=== PATIENT | female | born 1970 | race Caucasian/White ===

== ENCOUNTER 2021-08-27 10:04 | Emergency (ER) | payer SELFPAY ==
--- OUTSIDE RECORDS SUMMARY | 2021-08-27 10:07 | XMS REPORT | Continuity of Care Document ---
:1970 Author Organization [facility] t Address [address] [place] [address] Care Team Providers Name Role Phone Gumaro Gonzalez Attending Clinician Unavailable Problems This patient has no known problems. Allergies, Adverse Reactions, Alerts This patient has no known allergies or adverse reactions. Medications This patient has no known medications. Procedures This patient has no known procedures. Encounters Start End Encounter Admission Attending Care Care Encounter Source Date/Time Date/Time Type Type Clinicians Facility Department ID 2021-04-26 Outpatient Carlos [facility] [id number] Common 12:30:51 [facility] [id number] [facility] 2020-12-08 2020-12-08 Outpatient [facility] [id number] Common 00:00:00 00:00:00 [facility] 2020-11-29 2020-11-29 Outpatient [facility] [id number] Common 00:00:00 00:00:00 [facility] 2020-05-13 2020-05-13 Outpatient [facility] [id number] Common 00:00:00 00:00:00 [facility] Results Test Description Test Time Test Comments Results Result Comments Source PAP TEST, THINPREP, IMAGED 2021-07-04 16:59:51 Test Item Value Reference Range Interpretation Comme nts SOURCE: (test code = Cervical/Endocervical 8001) SLIDES: (test code = 1 801) LMP: (test code = 2017 8021) SPECIMEN ADEQUACY: (NOTE) Sati sfactory for (test code = 22274) evaluati on. Endocervical cells/transform ation zone component prese nt. INTERPRETATION: NILM/NO EPITH. ABNORMALITY;SEE (test code = 00804) BELOW -------- NEGATIVE FOR INTRAEPITHE LIAL LESION OR MALIGNANCY ( NILM) -- TRANSPORTATION SPECIALIST: Vicki Hutchinson (test code = 8101) LOCATION: (test code (NOTE) Specime ns processed and = 87877) [facility], [address] [place] [address], Phone: ( [phone], CLIA: [id number] CPT: (test code = (NOTE) 88688 U NLESS OTHERWISE 8140) INDICATED, COMP UTER AIDED AND CYTOTECHNOL OGIST SCREENING PERFO RMED. The Pap test is a screening test with an in herent, but low probabi lity of error. Your pa tient should be reminded to consult you immediately if she experiences any suspicious signs or symp toms, regardless of h er Pap test result. An alternate report format c ontaining images or conso lidated prior Pap histo ry is available as ap plicable. HPV HIGH RISK WITH GENOTYPE, [id number] 16:54:26 Test Item Value Reference Range Interpretation Comments HPV HIGH RISK INTERP NEGATIVE NEGATIVE (test code = 32558) HPV 16 (test code = NEGATIVE 84519) HPV 18 (test code = NEGATIVE 92155) HPV, HR, OTHER NEGATIVE Testing GENOTYPES (test code methodo logy is real-time = 30306) PCR utilizing h ydrolysis probes with the Voxoundas 480 0 system. The test indiv idually detects genot ypes 16 and 18, as well as the other 12 high r isk types (31,33,35,39,45 ,51,52,56 ,58,59,66,68). The expected re sult is negative. A negative result does not rule out the presence of HPV not included in the genotype set, a low level of infect ion or specimen haile pling error. U NLESS OTHERWISE INDIC ATED, ALL TESTING PERFORM ED ATCLINICAL PATH [facility], [facility]. [address] [place] [address] LABORATORY DIRE CTOR: GURPREET BELL M.D. CLIA NUMBER [id number] CAP ACCREDITATION N O. [id number]
[2021-08-27] MEDS ORDERED: HYDROCODONE/CHLORPHEN 5 ML/OSYR ONE (11:29)
[2021-08-27] MEDS ORDERED: IPRATROPIUM BROM 0.5MG/2.5ML ONE (11:29)
[2021-08-27] MEDS ORDERED: ALBUTEROL 2.5 MG/3 ML NEB SOL ONE (11:29)
--- NOTE | 2021-08-27 12:33 | RAD REPORT ---
EXAM DESCRIPTION: RAD - Chest Pa And Lat (2 Views) - 08/27/2021 12:25 pm CLINICAL HISTORY: COUGH Chest pain. COMPARISON: No comparisons FINDINGS: Prominent mild interstitial lung markings are seen bilaterally is suspicious for viral inf ection. The heart is upper limit of normal in size. No displaced fractures.
--- NOTE | 2021-08-27 13:27 | ER ---
Nurse's Notes [facility] Name: Dana Blackburn Age: 51 yrs Sex: Female : 1970 Arrival Date: 08/27/2021 Time: 10:06 Bed 9 Private MD: Diagnosis: Acute bronchitis, unspecified Presentation: 08/27 10:13 Chief complaint: Patient states: last week has had cough, stuffy nose, congestion, iw fatigue , body aches. Coronavirus screen: Client presents with at least one sign or symptom that may indicate coronavirus-19. Ebola Screen: Patient negative for fever greater than or equal to 101.5 degrees Fahrenheit, and additional compatible Ebola Virus Disease symptoms Patient denies exposure to infectious person. Patient denies travel to an Ebola-affected area in the 21 days before illness onset. No symptoms or risks identified at this time. Initial Sepsis Screen: Does the patient meet any 2 criteria? No. Patient's initial sepsis screen is negative. Does the patient have a suspected source of infection? No. Patient's initial sepsis screen is negative. Risk Assessment: Do you want to hurt yourself or someone else? Patient reports no desire to harm self or others. Onset of symptoms was August 20, 2021. 10:13 Method Of Arrival: Ambulatory iw 10:13 Acuity: SHAYLEE 4 iw Historical: - Allergies: 10:14 No Known Allergies; iw - Home Meds: 10:14 None [Active]; iw - PMHx: 10:14 None; iw - PSHx: 10:14 None; iw - Immunization history:: Client reports receiving the 2nd dose of the Covid vaccine. - Social history:: Smoking status: Patient denies any tobacco usage or history of. Screenin:22 Abuse screen: Denies threats or abuse. Denies injuries from another. Nutritional iw screening: No deficits noted. Tuberculosis screening: No symptoms or risk factors identified. Fall Risk None identified. Assessment: 10:21 General: Appears in no apparent distress. Behavior is calm, cooperative. General: iw Reports fever for feeling ill for fatigue for. Pain: Complains of pain in body aches. Neuro: Level of Consciousness is awake, alert, obeys commands, Moves all extremities. Full function. Cardiovascular: Patient's skin is warm and dry. Respiratory: Reports cough that is Respiratory effort is even, unlabored. Derm: Skin is intact, is healthy with good turgor. Musculoskeletal: Range of motion: intact in all extremities. 12:33 Reassessment: Patient appears in no apparent distress at this time. Patient and/or iw family updated on plan of care and expected duration. Pain level reassessed. Patient is alert, oriented x 3, equal unlabored respirations, skin warm/dry/pink. Vital Signs: 10:13 BP 119 / 84; Pulse 95; Resp 18; Temp 98.5; Pulse Ox 98% on R/A; Weight 52.62 kg; Height iw 5 ft. 2 in. (157.48 cm); 12:02 BP 126 / 77; Pulse 92; Resp 18; Pulse Ox 97% on R/A; tm3 10:13 Body Mass Index 21.22 (52.62 kg, 157.48 cm) iw ED Course: 10:06 Patient arrived in ED. iw 10:14 Triage completed. iw 10:15 Arm band placed on. iw 10:16 Deonna Hyde RN is Primary Nurse. iw 10:17 Karlos Barnes PA is PHCP. cp 10:17 Moise Brown MD is Attending Physician. cp 10:22 No provider procedures requiring assistance completed. iw 10:23 COVID swab sent to lab. Flu and/or RSV swab sent to lab. tm3 12:00 Strep swab sent to lab. tm3 12:27 XRAY Chest Pa And Lat (2 Views) In Process Unspecified. EDMS Administered Medications: 11:33 Drug: Tussionex Pennkinetic ER (chlorpheniramine-hydrocodone) Suspension 5 ml Route: PO;iw 11:33 Drug: Albuterol 2.5 mg Route: Inhalation; iw 11:34 Drug: AtroVENT (ipratropium) Aerosol 0.5 mg Route: Inhalation; iw Medication: 10:22 VIS not applicable for this client. iw Outcome: 13:27 Discharge ordered by . cp 13:42 Patient left the ED. iw Signatures: Dispatcher [employer] EDMS Brannon Damico tm3 Deonna Hyde RN RN iw Karlos aBrnes PA PA cp
--- NOTE | 2021-08-27 13:27 | EDPHYS ---
Physician Documentation [facility] Name: Dana Blackburn Age: 51 yrs Sex: Female : 1970 Arrival Date: 08/27/2021 Time: 10:06 Bed 9 Private MD: ED Physician Moise Brown HPI: 08/27 10:30 This 51 yrs old Female presents to ER via Ambulatory with complaints of Headache, cp Fever, Cough, General Weakness. 10:30 The patient or guardian reports cough, that is constant, with productive sputum. cp 10:30 Onset: The symptoms/episode began/occurred 1 week(s) ago. Associated signs and cp symptoms: Pertinent positives: fever, sore throat, headache, general weakness. Severity of symptoms: in the emergency department the symptoms are unchanged despite home interventions. Historical: - Allergies: 10:14 No Known Allergies; iw - Home Meds: 10:14 None [Active]; iw - PMHx: 10:14 None; iw - PSHx: 10:14 None; iw - Immunization history:: Client reports receiving the 2nd dose of the Covid vaccine. - Social history:: Smoking status: Patient denies any tobacco usage or history of. ROS: 10:35 Constitutional: Negative for fever. cp 10:35 Eyes: Negative for injury, pain, redness, and discharge. cp 10:35 ENT: Positive for sore throat, Negative for drainage from ear(s), ear pain, difficulty swallowing, difficulty handling secretions. 10:35 Cardiovascular: Negative for chest pain, edema, palpitations. 10:35 Respiratory: Positive for cough, Negative for shortness of breath, wheezing. 10:35 Abdomen/GI: Negative for abdominal pain, vomiting, diarrhea, constipation. 10:35 Back: Negative for radiated pain. 10:35 Neuro: Positive for headache, weakness, Negative for altered mental status, dizziness. 10:35 All other systems are negative. Exam: 10:45 Constitutional: The patient appears in no acute distress, alert, awake, cp non-diaphoretic, non-toxic, well developed, well nourished. 10:45 Head/Face: Normocephalic, atraumatic. cp 10:45 Eyes: Periorbital structures: appear normal, Pupils: equal, round, and reactive to light and accomodation, Extraocular movements: intact throughout, Conjunctiva: normal, no exudate, no injection, Lids and lashes: appear normal, bilaterally. 10:45 ENT: External ear(s): are unremarkable, Ear canal(s): are normal, clear, TM's: dullness, bilaterally, Nose: is normal, Mouth: Lips: moist, Oral mucosa: moist, Posterior pharynx: Airway: no evidence of obstruction, patent, Tonsils: no enlargement, no exudate, erythema, that is mild, exudate, is not appreciated. 10:45 Neck: ROM/movement: is normal, is supple, without pain, no range of motions limitations, no meningismus. 10:45 Chest/axilla: Inspection: normal. 10:45 Cardiovascular: Rate: normal, Rhythm: regular, Edema: is not appreciated, JVD: is not appreciated. 10:45 Respiratory: the patient does not display signs of respiratory distress, Respirations: normal, no use of accessory muscles, no retractions, Breath sounds: bronchial sounds, that are mild, are heard diffusely, stridor, is not appreciated, + upper airway congestion. wheezing: is not appreciated. 10:45 Abdomen/GI: Inspection: abdomen appears normal, Palpation: abdomen is soft and non-tender, in all quadrants. 10:45 Back: pain, is absent, ROM is normal. 10:45 Skin: no rash present. Vital Signs: 10:13 BP 119 / 84; Pulse 95; Resp 18; Temp 98.5; Pulse Ox 98% on R/A; Weight 52.62 kg; Height iw 5 ft. 2 in. (157.48 cm); 12:02 BP 126 / 77; Pulse 92; Resp 18; Pulse Ox 97% on R/A; tm3 10:13 Body Mass Index 21.22 (52.62 kg, 157.48 cm) iw MDM: 10:17 Patient medically screened. cp 13:26 Data reviewed: vital signs, nurses notes, lab test result(s). cp 13:26 Differential diagnosis: bronchitis, flu, URI. Counseling: I had a detailed discussion cp with the patient and/or guardian regarding: the historical points, exam findings, and any diagnostic results supporting the discharge/admit diagnosis, lab results, to return to the emergency department if symptoms worsen or persist or if there are any questions or concerns that arise at home. Response to treatment: the patient's symptoms have mildly improved after treatment, and as a result, I will discharge patient. 08/27 10:16 Order name: SARS-COV-2 RT PCR (Document "Date of Onset" if Symptomatic); Complete Time: iw 12:51 08/27 10:16 Order name: Flu; Complete Time: 12:51 iw 08/27 11:06 Order name: Strep; Complete Time: 12:51 cp 08/27 11:06 Order name: XRAY Chest Pa And Lat (2 Views); Complete Time: 12:51 cp 08/27 12:51 Interpretation: Report reviewed. cp 08/27 12:26 Order name: Throat Culture EDMS Administered Medications: 11:33 Drug: Tussionex Pennkinetic ER (chlorpheniramine-hydrocodone) Suspension 5 ml Route: PO;iw 11:33 Drug: Albuterol 2.5 mg Route: Inhalation; iw 11:34 Drug: AtroVENT (ipratropium) Aerosol 0.5 mg Route: Inhalation; iw Disposition: 17:14 Co-signature as Attending Physician, Moise Brown MD I agree with the assessment and kdr plan of care. Disposition Summary: 08/27/21 13:27 Discharge Ordered Location: Home cp Problem: new cp Symptoms: have improved cp Condition: Stable cp Diagnosis - Acute bronchitis, unspecified cp Followup: cp - With: Private Physician - When: 2 - 3 days - Reason: Recheck today's complaints Discharge Instructions: - Discharge Summary Sheet cp - Acute Bronchitis, Adult cp Forms: - Medication Reconciliation Form cp - Thank You Letter cp - Antibiotic Education cp - Prescription Opioid Use cp Prescriptions: - Bromfed DM 2-30-10 mg/5 mL Oral syrup - take 10 milliliter by ORAL route every 6 hours; 180 milliliter; Refills: 0, cp Product Selection Permitted - albuterol sulfate 90 mcg/actuation Inhalation HFA aerosol inhaler - inhale 1 puff by INHALATION route every 4-6 hours; 1 Inhaler; Refills: 0, cp Product Selection Permitted - Zithromax Z-Brad 250 mg Oral Tablet - take 1 tablet by ORAL route as directed for 5 days Day 1 - take two (2) tablets cp one time. Day 2, 3, 4 , 5 take one (1) tablet once daily.; 6 tablet; Refills: 0, Product Selection Permitted Signatures: Dispatcher [employer] Moise Torres MD MD kdr Williams, Irene, RN RN iw Karlos Barnes PA PA cp Corrections: (The following items were deleted from the chart) 12:53 12:00 This 51 yrs old Female presents to ER via Ambulatory with complaints of Headache, cp Fever, Cough, General Weakness. cp
[2021-08-27 13:47] VITALS: TEMP 98.5
[2021-08-27 13:49] VITALS: BP 126/77; O2SAT 97
== END 2021-08-27 13:42 | disposition home or self-care (01) ==
LOC: ER 10:04
DX: J20.9 Acute bronchitis, unspecified (principal); Z20.822 Contact with and (suspected) exposure to COVID-19
CPT/HCPCS: 71046; 87070; 87081; 87804; 99284; U0003